=== PATIENT | male | born 1995 | race Caucasian/White ===

== ENCOUNTER 2018-10-17 09:39 | Day surgery (SDC) | payer OTHER ==
[2018-10-16 16:54] VITALS: Ht 177.8 cm; Wt 105.0 kg
[~2018-10-17] VITALS: Ht 177.8 cm; Wt 105.0 kg
[2018-10-17] VITALS (13 sets, daily range): BP systolic 112–146; BP diastolic 61–75; PULSE 60–70; RESP 14–18
[2018-10-17] MEDS ORDERED: CEFAZOLIN 2 GM/50 ML (PMX) 50 ML IVPB ONE (11:00)
[2018-10-17] MEDS ORDERED: SOD CHLORIDE 0.9% 1,000 ML IV SCH (11:00)
--- NOTE | 2018-10-17 11:03 | PREAC ---
Date/Time of Note Date/Time of Note DATE: 10/17/18 TIME: 10:59 Anesthesia Eval and Record Evaluation Time Pre-Procedure Interview DATE: 10/17/18 TIME: 10:59 Age 23 Sex male NPO: 8 hrs Preoperative diagnosis cholelithiasis Planned procedure laparoscopic, possible open, cholecystectomy Past Medical History Past Medical History: Includes Pulm: Other (NONSMOKER) Hepatic: Other (alcohol use once a month) GI: Obesity (BMI 33.2, S/P Gastric sleeve surgery 2018, lost 140 pounds.) Surgery & Anesthesia Issues No known issue Meds Anticoagulation: No Beta Giancarlo within 24 hr: No Reason Beta Giancarlo not given: Pt. not on B-Giancarlo Current Medications Cefazolin Sodium/ Dextrose 50 ml @ 100 mls/hr PRE-OP ONCE IVPB ; Start 10/17/18 at 11:00; Stop 10/17/18 at 11:29 Sodium Chloride 1,000 ml @ 75 mls/hr [id number] IV ; Start 10/17/18 at 11:00; Stop 10/18/18 at 00:19 Meds reviewed: Yes (only meds he took Naproxen PRN for gallstone pains, last dose Naprooxen 7 days ago. ) Allergies Coded Allergies: No Known Drug Allergies (Unverified Allergy, Unknown, 10/16/18) Allergies Reviewed: Yes Labs/Studies Labs Reviewed: Other (not indicated ) test: N/A Pre-procedure Exam Airway: Adequate mouth opening, Adequate thyromental dist Mallampati: Mallampati II Teeth: Normal Lung: Normal Heart: Normal ASA Physical Status ASA physical status: 2 Emergency: None Planned Anesthetic General/MAC: ETT Nerve block: TAP (bilateral) Planned Pain Management Single shot nerve block, Parenteral pain med, Local by surgeon Pre-operative Attestations Prior to commencing anesthesia and surgery, the patient was re-evaluated, there was verification of: *The patient's identity *The results of appropriate recent lab work and preoperative vital signs *The above evaluation not changing prior to induction *Anesthetic plan, risk benefits, alternative and complications discussed with patient/family; questions answered; patient/family understands, accepts and wishes to proceed. RUFINO ROGER Oct 17, 2018 11:02
[2018-10-17] MEDS ORDERED: ROCURONIUM 50 MG INJ ONE (11:54)
[2018-10-17] MEDS ORDERED: ONDANSETRON 4 MG INJ ONE (11:54)
[2018-10-17] MEDS ORDERED: GLYCOPYRROLATE 0.4 MG INJ ONE (11:54)
[2018-10-17] MEDS ORDERED: NEOSTIGMINE 3 MG/3 ML SYRINGE ONE (11:54)
[2018-10-17] MEDS ORDERED: CEFAZOLIN 1 GM INJ ONE (11:54)
[2018-10-17] MEDS ORDERED: FENTAnyl 50 MCG/ML VIAL ONE ×3 (11:54→14:44)
[2018-10-17] MEDS ORDERED: MIDAZOLAM 1 MG/ML 2 ML INJ ONE (11:54)
[2018-10-17] MEDS ORDERED: PROPOFOL 20 ML ONE (11:54)
[2018-10-17] MEDS ORDERED: DEXAMETHASONE 4 MG/ML 5 ML INJ ONE (11:54)
[2018-10-17] MEDS ORDERED: ROPIVACAINE 0.5 % 30 ML VIAL ONE (11:57)
[2018-10-17] MEDS ORDERED: KETOROLAC 30 MG INJ ONE (12:07)
[2018-10-17] MEDS ORDERED: OXYCODONE/ACETAMINOPHEN (5/325) TAB PO PRN ×2 (14:30)
[2018-10-17] MEDS ORDERED: FENTAnyl 50 MCG/ML VIAL IV PRN ×3 (14:30)
[2018-10-17] MEDS ORDERED: DIPHENHYDRAMINE 50 MG INJ IV PRN (14:30)
[2018-10-17] MEDS ORDERED: ALBUTEROL 0.083% (NEB) 2.5 MG/3 ML AMP HHN PRN (14:30)
[2018-10-17] MEDS ORDERED: TRIMETHOBENZAMIDE 100 MG/ML VIAL IM PRN (14:30)
[2018-10-17] MEDS ORDERED: IPRATROPIUM (NEB) 0.5 MG/2.5 ML AMP HHN PRN (14:30)
[2018-10-17] MEDS ORDERED: EPHEDrine 25 MG/5 ML SYG IV PRN (14:30)
[2018-10-17] MEDS ORDERED: MEPERIDINE 25 MG INJ IV PRN (14:30)
[2018-10-17] MEDS ORDERED: hydrALAzine 20 MG INJ IV PRN (14:30)
[2018-10-17] MEDS ORDERED: MIDAZOLAM 1 MG/ML 2 ML INJ IV PRN (14:30)
[2018-10-17] MEDS ORDERED: LABETALOL HCL 20MG INJ IV PRN (14:30)
[2018-10-17] MEDS ORDERED: HYDROmorphONE 1 MG/5 ML IV SYRINGE IV PRN ×3 (14:30)
[2018-10-17] MEDS ORDERED: ONDANSETRON 4 MG INJ IV PRN (14:30)
--- NOTE | 2018-10-17 15:08 | OPR ---
Date/Time of Note Date/Time of Note DATE: 10/17/18 TIME: 15:05 Operative Report Procedure Date: Oct 17, 2018 Preoperative Diagnosis symptomatic gallstones Postoperative Diagnosis same Operation/Procedure Performed laparoscopic cholecystectomy Surgeon see signature line Tunnel Form Placing Supervisor none Anesthesia Type: general Estimated Blood Loss: 0 - 10 ml's Transfusion none Specimen gallbladder Grafts/Implants none Complications none Pt Condition Post Procedure: stable Indications This is a 23-year-old female male was then gallstones. He request surgical excision of the gallbladder. Risks alternatives benefits and personal were discussed the patient. In addition since he has had a laparoscopic gastric sleeve procedure he has a slightly increased chance for open procedure. This was discussed the patient. Potential complications including but not limited to bleeding infection common bile duct injury injury to surrounding tissues. Patient expressed understanding and consents to the operation. Procedure Description Patient is taken to the OR prepped and draped in usual sterile fashion. Surgical time was performed. IV antibiotics given. Supraumbilical vertical incision was made with a 15 blade. Dissection cautery skin onto the fascia. Fascia was divided and a Connor trocar was introduced. Pneumoperitoneum was established. Midepigastric 12-minute optical trochars placed under direct visualization. Right upper quadrant upper flank 5 mm optical trochars were placed under direct visualization. Upon initial inspection there is adhesions to gallbladder which obtain a bluntly. The gallbladder was grasped with the fundus and traction lateral cephalad direction. [place] graspers were used to dissect out the cystic duct and cystic artery. The critical view was established. The cystic duct is thickened and is divided with a 35 mm echelon vessel stapler. Cystic artery was divided 3 clips proximal to distal and the divisions performed laparoscopic scissors. The gallbladder taken of the gallbladder bed. Good hemostasis status. The gallbladder is retrieved Endo Catch bag. All ports removed under direct visualization. Supraumbilical degree 0 Vicryl suture is placed in the fascia. This was then tied down. Skin is closed and skin wing. A tap block was provided by the anesthesiologist the beginning of the case. Dry dressings were applied. Vijay KUO Oct 17, 2018 15:08
[2018-10-17] MEDS ORDERED: HYDROCODONE/APAP (5/325) TAB PO ONE (15:30)
--- NOTE | 2018-10-18 14:33 | PAC ---
Date/Time of Note Date/Time of Note DATE: 10/18/18 TIME: 14:32 Post-Anesthesia Notes Post-Anesthesia Note Last documented vital signs Vital Signs Date Temp Pulse Resp B/P (MAP) Pulse Ox O2 O2 Flow FiO2 Time Delivery Rate 10/17/18 98.4 64 16 116/61 98 Room Air 16:20 (79) Activity: WNL Respiratory function: WNL Cardiovascular function: WNL Mental status: Baseline Pain reasonably controlled: Yes Hydration appropriate: Yes Nausea/Vomiting absent: Yes Dallin Turcios M.D. Oct 18, 2018 14:33
== END 2018-10-17 17:57 | disposition home or self-care (01) ==
LOC: SDS 09:39
PROVIDERS: ATTEND Surgery
DX: K80.10 Calculus of gallbladder with chronic cholecystitis without obstruction (principal)
CPT/HCPCS: 47562; 88304; J0690; J1100; J1170; J2250; J2405; J2710; J2795; J3010; Z7512; Z7610; J1885